=== PATIENT | female | born 1985 | race Caucasian/White ===

== ENCOUNTER 2017-12-22 09:24 | Emergency (ER) | payer MEDICAID ==
[2017-03-09 20:06] VITALS: Wt 50.8 kg
[~2017-12-22 09:24] MED LIST: ACE3 PO; ACET-1718 PO; ADV100/50 INH; ADV250/50 INH; ADV500/50 INH; ALB6.7R INH; ALBU8.5H IH; AMO500 PO; AMOX-362 PO; ANTIBIOTIC; AUG500 PO; AUG875 PO; AUGMENTIN; BACDS PO; BCP; BEN100 PO; CEP250 PO; CEP500 PO; CETI10CA8 PO; CIP500 PO; CODE473S6 PO; CYC10 PO; DIPH-740 PO; DOXY-179 PO; ETON68IM SQ; FAM20 PO; FAMO20TA28 PO; FERR325C2 PO; FLUT1DIS28 IH; FLUT9.9S ENA; HYDR-3083 PO; IBU800 PO; IBUP600T22 PO; IBUP800T37 PO; KET10 PO; LOR5 PO; LOR5/325 PO; LOR75 PO; LORA-1455 PO; MECL25TA9 PO; MET10 PO; METH4TAB66 PO; METR-1 PO; METR250 PO; MONT10TA PO; MONT10TA4 PO; MUCINEX; NIF10 PO; NIFE10CA38 PO; NIFE20CA8 PO; NIT100 PO; NITR-105 PO; NORG1TAB2 PO; NORG1TAB75 PO; ONDA4TAB PO; ONDA4TAB97 PO; OSEL75CA15 PO; OXYC5SOL14 PO; Oral birth control; PAN20 PO; PAN40 PO; PANT40TA65 PO; PER PO; PHEN-529 PO; PHEN200T32 PO; PHENA200 PO; PNV1CAPS53 PO; PRE20 PO; PRED-1 PO; PRED-314 PO; PRED1TAB17 PO; PRED20TA6 PO; PREN-127 PO; PREN-85 PO; PREN1COM5 PO; PRENATAL VIT PO; PRO25 PO; PROAIRPT IH; ROBC PO; SERT-1 PO; SERT25TA87 PO; SULF-120 PO; SULF-198 PO; TER25 PO; TRA50 PO; TRAM-420 PO; [UNRECOGNIZED DRUG - OTHER] PO
--- NOTE | 2017-12-22 09:29 | ER Report ---
History and Physical Time Seen By MD: 09:25 HPI/ROS CHIEF COMPLAINT: Mid epigastric abdominal pain with radiation to the mid thoracic back HISTORY OF PRESENT ILLNESS: 32-year-old female here with acute onset of midepigastric pain with radiation to the thoracic spine which started approximately 845 this morning. Patient reports a dull gnawing pain which is consistent with her prior episodes of pancreatitis. She she currently takes vitamin D and Zoloft and has not taken pantoprazole and approximately 6 months. Patient reports several episodes of emesis with associated nausea. Patient denies fevers, chills, chest pain, shortness of breath, blurred vision, sore throat, dysuria or rashes. REVIEW OF SYSTEMS: Constitutional: Uncomfortable, non toxic Eyes: No discharge. ENT: No sore throat. Cardiovascular: No chest pain, no palpitations. Respiratory: No cough, no shortness of breath. Gastrointestinal: + Mid abdominal pain in mid epigastrium, no vomiting. Genitourinary: No hematuria. Musculoskeletal: No back pain. Skin: No rashes. Neurological: No headache. Allergies: Coded Allergies: lorazepam (Verified Allergy, Severe, ANAPHYLAXIS, 12/22/17) Uncoded Allergies: NUTS (Allergy, Unknown, 12/22/17) Home Meds Active Scripts Ondansetron (ZOFRAN ODT) 4 Mg Tab.rapdis, 4 MG PO Q6H Y for NAUSEA/VOMITING for 7 Days, #20 TAB.KOSTAS 0 Refills Prov:PREETI PARK David NESS 12/22/17 Reported Medications Cholecalciferol (Vitamin D3) (VITAMIN D3) 1,000 Unit Tablet, 1000 UNIT PO QDAY, TAB 12/22/17 Sertraline Hcl (ZOLOFT) 100 Mg Tablet, 1 TAB PO QDAY, TAB 12/22/17 Discontinued Reported Medications Sertraline Hcl (ZOLOFT) 50 Mg Tablet, 1.5 TAB PO QDAY, TAB 04/20/17 Montelukast Sodium (SINGULAIR) 10 Mg Tablet, 1 TAB PO QDAY, TAB 02/28/17 Fluticasone Propionate (Flonase Allergy Relief) 9.9 Ml [place].susp, DELILAH DAILY 02/28/17 Cetirizine Hcl (ZYRTEC) 10 Mg Capsule, 10 MG PO QDAY, CAPSULE 6/30/17 Famotidine (PEPCID) 20 Mg Tablet, 20 MG PO QDAY, #10 TAB 02/25/17 Pantoprazole Sodium (PANTOPRAZOLE SODIUM) 40 Mg Tablet.dr, 40 MG PO QDAY, TAB.SR 02/25/17 Albuterol Sulfate 90 Mcg/Act (PROAIR HFA 90 MCG/ACT) 8.5 Gm Hfa.aer.ad, 1-2 PUFF IH 3-4XD, INHALER 08/16/16 Fluticasone/Salmeterol (ADVAIR 250-50 DISKUS) 1 Each Disk.w.dev, 1 EACH IH 08/16/16 Vits W-Ca,Fe,Fa(<1MG) ( VITAMINS) 1 Each Tablet, 1 EACH PO DAILY, TAB 08/16/16 Discontinued Scripts Sulfamethoxazole/Trimet 800-160 Mg Tab (BACTRIM DS TABLET) 1 Each Tablet, 1 TAB PO Q12H, #14 TAB Prov:LAITH MTZ INVESTMENT CONSULTANT 04/20/17 Past Medical/Surgical History She has a history significant for vertigo, migraines, asthma, pancreatitis, urinary tract infection, D&C, Reviewed Nurses Notes: Yes Old Medical Records Reviewed: Yes Hx Smoking: No Smoking Status: Former Smoker Exposure to Second Hand Smoke?: Yes Hx Substance Use Disorder: No Hx Alcohol Use: No Constitutional Vital Sign - Last 24 Hours 12/22/17 12/22/17 12/22/17 12/22/17 09:30 09:30 09:39 09:51 Temp 98.3 Pulse 63 Resp 16 B/P (MAP) 113/71 113/71 (85) 118/95 (103) Pulse Ox 93 98 O2 Delivery Room Air 12/22/17 12/22/17 12/22/17 12/22/17 09:59 10:00 10:14 10:19 Pulse 113 63 67 B/P (MAP) 121/75 (90) Pulse Ox 88 95 97 12/22/17 12/22/17 12/22/17 12/22/17 10:19 10:30 10:30 10:34 Pulse 67 64 B/P (MAP) 101/50 (67) 101/50 (67) Pulse Ox 97 94 12/22/17 12/22/17 12/22/17 12/22/17 10:34 10:49 10:49 10:54 Pulse 64 69 69 ??? Pulse Ox 94 100 100 12/22/17 12/22/17 12/22/17 12/22/17 10:58 11:00 11:24 11:30 Pulse 64 B/P (MAP) 113/53 (73) 120/76 (91) 120/69 (86) 12/22/17 12/22/17 12/22/17 12/22/17 11:54 12:00 12:24 12:30 Pulse 66 74 B/P (MAP) 108/68 (81) 113/72 (86) Pulse Ox 92 93 12/22/17 12/22/17 12/22/17 12/22/17 12:35 12:50 13:00 13:05 Pulse 64 66 80 B/P (MAP) 102/74 (83) Pulse Ox 92 89 94 Intake and Output 12/22/17 12/22/17 12/23/17 15:00 23:00 07:00 Intake Total 1000 ml Balance 1000 ml Physical Exam General Appearance: The patient is alert, has no immediate need for airway protection and no signs of toxicity. + moderate discomfort due to pain Eyes: Pupils equal and round no pallor or injection. ENT, Mouth: Mucous membranes are moist. Respiratory: There are no retractions, lungs are clear to auscultation. Cardiovascular: Regular rate and rhythm. Gastrointestinal: Abdomen is soft with mild TTP of the mid epigastrium no masses, bowel sounds normal. No rebound or guarding Neurological: No focal deficits Skin: Warm and dry, no rashes. Musculoskeletal: Neck is supple non tender. DIFFERENTIAL DIAGNOSIS: After history and physical exam differential diagnosis was considered for abdominal pain including but not limited to appendicitis, cholecystitis, gastritis and urinary tract infection, pancreatitis Medical Decision Making Data Points Result Diagram: 12/22/17 0935 12/22/17 0935 Laboratory Hematology Test 12/22/17 09:35 12/22/17 10:54 Red Blood Count 4.78 M/uL (4.17-5.56) Mean Corpuscular Volume 85.4 fL (80.0-96.0) Mean Corpuscular Hemoglobin 28.7 pg (26.0-33.0) Mean Corpuscular Hemoglobin Concent 33.5 g/dL (32.0-36.0) Red Cell Distribution Width 13.0 % (11.5-14.5) Mean Platelet Volume 8.8 fL (7.2-11.1) Neutrophils (%) (Auto) 51.2 % (39.4-72.5) Lymphocytes (%) (Auto) 35.9 % (17.6-49.6) Monocytes (%) (Auto) 7.7 % (4.1-12.4) Eosinophils (%) (Auto) 4.4 % (0.4-6.7) Basophils (%) (Auto) 0.8 % (0.3-1.4) Nucleated RBC Relative Count (auto) 0.0 /100WBC Neutrophils # (Auto) 3.8 K/uL (2.0-7.4) Lymphocytes # (Auto) 2.7 K/uL (1.3-3.6) Monocytes # (Auto) 0.6 K/uL (0.3-1.0) Eosinophils # (Auto) 0.3 K/uL (0.0-0.5) Basophils # (Auto) 0.1 K/uL (0.0-0.1) Nucleated RBC Absolute Count (auto) 0.00 K/uL Sodium Level 140 mmol/L (137-145) Potassium Level 2.7 mmol/L (3.5-5.0) Chloride Level 98 mmol/L (98-107) Carbon Dioxide Level 27 mmol/L (22-31) Blood Urea Nitrogen 8 mg/dl (7-18) Creatinine 0.80 mg/dl (0.52-1.04) Glomerular Filtration Rate Calc > 60.0 Random Glucose 107 mg/dl (75-110) Calcium Level 9.2 mg/dl (8.4-10.2) Total Bilirubin 0.4 mg/dl (0.2-1.3) Aspartate Amino Transf (AST/SGOT) 24 U/L (0-35) Alanine Aminotransferase (ALT/SGPT) 17 U/L (0-56) Alkaline Phosphatase 98 U/L (0-126) Total Protein 7.4 gm/dl (6.3-8.2) Albumin 4.2 g/dl (3.5-5.0) Lipase 106 U/L (23-300) Human Chorionic Gonadotropin, Qual Negative (NEGATIVE) Urine Color Yellow Urine Clarity Slightly-cloudy Urine pH 5.0 pH (4.8-9.5) Urine Specific [place] 1.015 Urine Protein Negative mg/dL (NEGATIVE) Urine Glucose (UA) Negative mg/dL (NEGATIVE) Urine Ketones Negative mg/dL (NEGATIVE) Urine Blood Negative (NEGATIVE) Urine Nitrite Negative (NEGATIVE) Urine Bilirubin Negative (NEGATIVE) Urine Urobilinogen Negative mg/dL (0.2-1.9) Urine Leukocyte Esterase Negative (NEGATIVE) Urine RBC 1 /HPF (0-2/HPF) Urine WBC 3 /HPF (0-5/HPF) Urine Squamous Epithelial Cells Many /LPF (</=FEW) Urine Transitional Epithelial Cells Few /LPF (NONE-FEW) Urine Bacteria Negative /HPF (NONE-FEW) Urine Mucus Few /HPF (NONE-FEW) Chemistry Test 12/22/17 09:35 12/22/17 10:54 White Blood Count 7.5 k/uL (4.5-11.0) Red Blood Count 4.78 M/uL (4.17-5.56) Hemoglobin 13.7 g/dL (12.0-16.0) Hematocrit 40.9 % (34.0-47.0) Mean Corpuscular Volume 85.4 fL (80.0-96.0) Mean Corpuscular Hemoglobin 28.7 pg (26.0-33.0) Mean Corpuscular Hemoglobin Concent 33.5 g/dL (32.0-36.0) Red Cell Distribution Width 13.0 % (11.5-14.5) Platelet Count 269 K/uL (150-450) Mean Platelet Volume 8.8 fL (7.2-11.1) Neutrophils (%) (Auto) 51.2 % (39.4-72.5) Lymphocytes (%) (Auto) 35.9 % (17.6-49.6) Monocytes (%) (Auto) 7.7 % (4.1-12.4) Eosinophils (%) (Auto) 4.4 % (0.4-6.7) Basophils (%) (Auto) 0.8 % (0.3-1.4) Nucleated RBC Relative Count (auto) 0.0 /100WBC Neutrophils # (Auto) 3.8 K/uL (2.0-7.4) Lymphocytes # (Auto) 2.7 K/uL (1.3-3.6) Monocytes # (Auto) 0.6 K/uL (0.3-1.0) Eosinophils # (Auto) 0.3 K/uL (0.0-0.5) Basophils # (Auto) 0.1 K/uL (0.0-0.1) Nucleated RBC Absolute Count (auto) 0.00 K/uL Glomerular Filtration Rate Calc > 60.0 Calcium Level 9.2 mg/dl (8.4-10.2) Total Bilirubin 0.4 mg/dl (0.2-1.3) Aspartate Amino Transf (AST/SGOT) 24 U/L (0-35) Alanine Aminotransferase (ALT/SGPT) 17 U/L (0-56) Alkaline Phosphatase 98 U/L (0-126) Total Protein 7.4 gm/dl (6.3-8.2) Albumin 4.2 g/dl (3.5-5.0) Lipase 106 U/L (23-300) Human Chorionic Gonadotropin, Qual Negative (NEGATIVE) Urine Color Yellow Urine Clarity Slightly-cloudy Urine pH 5.0 pH (4.8-9.5) Urine Specific [place] 1.015 Urine Protein Negative mg/dL (NEGATIVE) Urine Glucose (UA) Negative mg/dL (NEGATIVE) Urine Ketones Negative mg/dL (NEGATIVE) Urine Blood Negative (NEGATIVE) Urine Nitrite Negative (NEGATIVE) Urine Bilirubin Negative (NEGATIVE) Urine Urobilinogen Negative mg/dL (0.2-1.9) Urine Leukocyte Esterase Negative (NEGATIVE) Urine RBC 1 /HPF (0-2/HPF) Urine WBC 3 /HPF (0-5/HPF) Urine Squamous Epithelial Cells Many /LPF (</=FEW) Urine Transitional Epithelial Cells Few /LPF (NONE-FEW) Urine Bacteria Negative /HPF (NONE-FEW) Urine Mucus Few /HPF (NONE-FEW) Urinalysis Test 12/22/17 10:54 Urine Color Yellow Urine Clarity Slightly-cloudy Urine pH 5.0 pH (4.8-9.5) Urine Specific [place] 1.015 Urine Protein Negative mg/dL (NEGATIVE) Urine Glucose (UA) Negative mg/dL (NEGATIVE) Urine Ketones Negative mg/dL (NEGATIVE) Urine Blood Negative (NEGATIVE) Urine Nitrite Negative (NEGATIVE) Urine Bilirubin Negative (NEGATIVE) Urine Urobilinogen Negative mg/dL (0.2-1.9) Urine Leukocyte Esterase Negative (NEGATIVE) Urine RBC 1 /HPF (0-2/HPF) Urine WBC 3 /HPF (0-5/HPF) Urine Squamous Epithelial Cells Many /LPF (</=FEW) Urine Transitional Epithelial Cells Few /LPF (NONE-FEW) Urine Bacteria Negative /HPF (NONE-FEW) Urine Mucus Few /HPF (NONE-FEW) EKG/Imaging Imaging EXAMINATION: Chest radiographs 2 views HISTORY: Epigastric pain, chest pain. COMPARISON: 12/21/2014. FINDINGS: PA and lateral views of the chest are submitted. Lines/tubes: None. Lungs/pleura: No focal consolidation or pleural effusion. Heart: Negative. Mediastinum: Negative. Bony structures/body wall: Negative. Visualized upper abdomen: No free air. IMPRESSION: No radiographic evidence of acute cardiopulmonary disease. ED Course/Re-evaluation ED Course Patient is a 32-year-old female here with midepigastric pain radiating to the mid thoracic spine which started shortly prior to arrival. Patient was in moderate distress at time of arrival however improved significantly by the time of reevaluation at 12/22/2017 11:22:50 am after receiving Toradol, 1 L normal saline bolus, Zofran. Chest x-ray was ordered and was unremarkable showing no signs of free air under the diaphragm or effusions. Patient reportedly had a history of pancreatitis proximally 7 years prior and has been off of her pantoprazole for approximately 6 months. Patient was mildly reproducible on palpation of the midepigastrium. Patient was noted to have a potassium at 2.7 and was repleted with 40 mL equivalents of potassium. Patient pain improved and I discussed the findings with the patient. Patient was given a prescription for Zofran as needed for nausea. Patient was stable at time of discharge Re-evaluation Patient symptoms had improved by time of reevaluation. I discussed the findings of her lab reports and imaging and she voiced understanding. Patient was given a prescription for Zofran Decision to Disposition Date: Dec 22, 2017 Decision to Disposition Time: 13:15 Depart Departure Latest Vital Signs Vital Signs Date Time Temp Pulse Resp B/P (MAP) Pulse Ox O2 Delivery O2 Flow Rate FiO2 12/22/17 13:05 80 94 12/22/17 13:00 102/74 (83) 12/22/17 09:30 98.3 16 Room Air Impression: Primary Impression: Epigastric abdominal pain Additional Impression: Nausea & vomiting Condition: Improved Disposition: HOME OR SELF-CARE Referrals: SALLIE ORLANDO PA-C (PCP) New Scripts Ondansetron (ZOFRAN ODT) 4 Mg Tab.rapdis 4 MG PO Q6H Y for NAUSEA/VOMITING for 7 Days, #20 TAB.KOSTAS 0 Refills Prov: PREETI PARK DO 12/22/17 Patient Instructions: Acute Abdominal Pain (ED), Acute Nausea and Vomiting (ED) Additional Instructions: Please return promptly with any worsening of your symptoms. You are noted to have a low potassium level on were given potassium for repletion. These follow- up with her family doctor in the next week for further management. He may take 1 tab of Zofran for nausea as needed every 6 hours. Problem Qualifiers PREETI PARK DO Dec 22, 2017 09:28
[2017-12-22] MEDS ORDERED: CHOL10005 PO (09:31)
[2017-12-22] MEDS ORDERED: SERT-173 PO (09:31)
[2017-12-22] MEDS ORDERED: KETOROLAC 30 MG/ML VIAL IVP ONE (09:40)
[2017-12-22] MEDS ORDERED: NS(*) 0.9% 1000 ML BAG 1,000 ML IV ONE (09:40)
[2017-12-22] MEDS ORDERED: ONDANSETRON 4 MG ODT TABDP SL ONE (09:40)
--- NOTE | 2017-12-22 10:17 | RADIOLOGY IMAGING REPORT ---
FACILITY: [facility] [place] PATIENT NAME: Mathieu Joseph : 1985 MR: [id number] V: [id number] EXAM DATE: ORDERING PHYSICIAN: PREETI PARK TECHNOLOGIST: Location: [facility] Patient: Mathieu Joseph : 1985 Visit/Account:[id number] Date of Sevice: 12/22/2017 EXAMINATION: Chest radiographs 2 views HISTORY: Epigastric pain, chest pain. COMPARISON: 12/21/2014. FINDINGS: PA and lateral views of the chest are submitted. Lines/tubes: None. Lungs/pleura: No focal consolidation or pleural effusion. Heart: Negative. Mediastinum: Negative. Bony structures/body wall: Negative. Visualized upper abdomen: No free air. IMPRESSION: No radiographic evidence of acute cardiopulmonary disease. Report Dictated By: Inés Cooper MD at 12/22/2017 10:11 AM Report E-Signed By: Inés Cooper MD at 12/22/2017 10:11 AM WSN:[id number]
[2017-12-22] MEDS ORDERED: fentaNYL CITR 100 MCG/2 ML AMP IVP ONE (12:25)
[2017-12-22 12:29] LABS: PLATELET COUNT, AUTOMATED 269 K/uL (150-450)
[2017-12-22 13:00] VITALS: BP 102/74
[2017-12-22] MEDS ORDERED: POTASSIUM CHL 20 MEQ TABCR PO SCH (13:00)
[2017-12-22] MEDS ORDERED: ONDA4TAB PO (13:15)
== END 2017-12-22 13:21 | disposition home or self-care (01) ==
LOC: ER 09:24
DX: R10.13 Epigastric pain (principal); R11.2 Nausea with vomiting, unspecified; E87.6 Hypokalemia
CPT/HCPCS: 71046; 81001; 83690; 84703; 85025; 96361; 96374; 99284; J1885; J7030; S0119; 82040; 82247; 82310; 82374; 82435; 82565; 82947; 84075; 84132; 84155; 84295; 84450; 84460; 84520

== ENCOUNTER 2018-01-23 19:37 | Emergency (ER) | payer MEDICAID ==
[2017-03-09 20:06] VITALS: Wt 54.4 kg
[~2018-01-23 19:37] MED LIST changes: +CHOL10005 PO; +SERT-173 PO
[2018-01-23] MEDS ORDERED: MONT10TA PO (19:48)
[2018-01-23] MEDS ORDERED: FLUT1DIS27 IH (19:48)
[2018-01-23] MEDS ORDERED: PANT40TA65 PO (19:48)
--- NOTE | 2018-01-23 19:54 | ER Report ---
History and Physical Time Seen By MD: 19:49 Hx. of Stated Complaint: pT REPORTING ABDOMINAL PAIN SINCE THIS MORNING. NO NVD. NO CONSTIPATION. PT REPORTS REALLY BAD CRAMPS AND BURNING WHEN SHE URINATES. HPI/ROS CHIEF COMPLAINT: dysuria, abdominal and low back pain HISTORY OF PRESENT ILLNESS: This is a 32 year old female. She is having lower abdominal cramping, started minimal last night, worse today. Urinary frequency, urgency and burning. Mild nausea. No diarrhea. No fevers or chills. History of frequent UTIs. Due for menses at the first of the month, regular. Allergies: Coded Allergies: lorazepam (Verified Allergy, Severe, ANAPHYLAXIS, 12/22/17) Uncoded Allergies: NUTS (Allergy, Unknown, 12/22/17) Home Meds Active Scripts Hydrocodone Bit/Acetaminophen (HYDROCODON-ACETAMINOPHEN 5-325) 1 Each Tablet, 1 EACH PO Q4H Y for PAIN, #4 TAB 0 Refills Prov:JOSE ARTEAGA MD 01/23/18 Sulfamethoxazole/Trimet 800-160 Mg Tab (BACTRIM DS TABLET) 1 Each Tablet, 1 TAB PO Q12H, #14 TAB 0 Refills Prov:JOSE ARTEAGA MD 01/23/18 Reported Medications Fluticasone/Salmeterol (ADVAIR 100-50 DISKUS) 1 Each Disk.w.dev, 1 EACH IH 01/23/18 Pantoprazole Sodium (PANTOPRAZOLE SODIUM) 40 Mg Tablet.dr, 40 MG PO QDAY, TAB.SR 01/23/18 Montelukast Sodium (SINGULAIR) 10 Mg Tablet, 1 TAB PO QDAY, TAB 01/23/18 Cholecalciferol (Vitamin D3) (VITAMIN D3) 1,000 Unit Tablet, 1000 UNIT PO QDAY, TAB 12/22/17 Sertraline Hcl (ZOLOFT) 100 Mg Tablet, 1 TAB PO QDAY, TAB 12/22/17 Discontinued Scripts Ondansetron (ZOFRAN ODT) 4 Mg Tab.rapdis, 4 MG PO Q6H Y for NAUSEA/VOMITING for 7 Days, #20 TAB.KOSTAS 0 Refills Prov:PREETI PARK DO 12/22/17 Reviewed Nurses Notes: Yes Hx Smoking: No Smoking Status: Former Smoker Exposure to Second Hand Smoke?: Yes Hx Substance Use Disorder: No Hx Alcohol Use: No Constitutional Vital Sign - Last 24 Hours 01/23/18 01/23/18 01/23/18 01/23/18 19:42 19:43 19:52 20:00 Temp 98.6 Pulse 76 76 Resp 16 B/P (MAP) 118/84 118/84 (95) 115/85 (95) Pulse Ox 97 94 O2 Delivery Room Air 01/23/18 01/23/18 01/23/18 20:07 20:22 20:30 Pulse 72 71 B/P (MAP) 121/92 (102) Pulse Ox 95 94 Physical Exam General Appearance: The patient is alert, has no immediate need for airway protection and no current signs of toxicity. Respiratory: Chest is non tender, lungs are clear to auscultation. Cardiac: regular rate and rhythm Gastrointestinal: Abdomen is soft with tenderness suprapubic area. With bowel sounds normal. Musculoskeletal: No discomfort with palpation of lower back. Skin: No rashes or lesions. DIFFERENTIAL DIAGNOSIS: After history and physical exam differential diagnosis was considered for dysuria, frequency, urgency with suprapubic and low back pain , likely UTI. Medical Decision Making Data Points Laboratory Hematology Test 01/23/18 19:49 Urine Color Yellow Urine Clarity Slightly-cloudy Urine pH 5.0 pH (4.8-9.5) Urine Specific [place] 1.027 Urine Protein 30 mg/dL (NEGATIVE) Urine Glucose (UA) Negative mg/dL (NEGATIVE) Urine Ketones Negative mg/dL (NEGATIVE) Urine Blood Negative (NEGATIVE) Urine Nitrite Negative (NEGATIVE) Urine Bilirubin Negative (NEGATIVE) Urine Urobilinogen Negative mg/dL (0.2-1.9) Urine Leukocyte Esterase Trace (NEGATIVE) Urine RBC 1 /HPF (0-2/HPF) Urine WBC 2 /HPF (0-5/HPF) Urine Squamous Epithelial Cells Many /LPF (</=FEW) Urine Bacteria Negative /HPF (NONE-FEW) Urine Mucus Few /HPF (NONE-FEW) Urine HCG, Qualitative Negative (NEGATIVE) Chemistry Test 01/23/18 19:49 Urine Color Yellow Urine Clarity Slightly-cloudy Urine pH 5.0 pH (4.8-9.5) Urine Specific [place] 1.027 Urine Protein 30 mg/dL (NEGATIVE) Urine Glucose (UA) Negative mg/dL (NEGATIVE) Urine Ketones Negative mg/dL (NEGATIVE) Urine Blood Negative (NEGATIVE) Urine Nitrite Negative (NEGATIVE) Urine Bilirubin Negative (NEGATIVE) Urine Urobilinogen Negative mg/dL (0.2-1.9) Urine Leukocyte Esterase Trace (NEGATIVE) Urine RBC 1 /HPF (0-2/HPF) Urine WBC 2 /HPF (0-5/HPF) Urine Squamous Epithelial Cells Many /LPF (</=FEW) Urine Bacteria Negative /HPF (NONE-FEW) Urine Mucus Few /HPF (NONE-FEW) Urine HCG, Qualitative Negative (NEGATIVE) Urinalysis Test 01/23/18 19:49 Urine Color Yellow Urine Clarity Slightly-cloudy Urine pH 5.0 pH (4.8-9.5) Urine Specific [place] 1.027 Urine Protein 30 mg/dL (NEGATIVE) Urine Glucose (UA) Negative mg/dL (NEGATIVE) Urine Ketones Negative mg/dL (NEGATIVE) Urine Blood Negative (NEGATIVE) Urine Nitrite Negative (NEGATIVE) Urine Bilirubin Negative (NEGATIVE) Urine Urobilinogen Negative mg/dL (0.2-1.9) Urine Leukocyte Esterase Trace (NEGATIVE) Urine RBC 1 /HPF (0-2/HPF) Urine WBC 2 /HPF (0-5/HPF) Urine Squamous Epithelial Cells Many /LPF (</=FEW) Urine Bacteria Negative /HPF (NONE-FEW) Urine Mucus Few /HPF (NONE-FEW) Urine HCG, Qualitative Negative (NEGATIVE) ED Course/Re-evaluation ED Course Pain improved with a dose of Lortab 5/325. Urinalysis with changes likely representing urinary tract infection, but could be contamination as well. Urine culture ordered. Started on Bactrim DS. Decision to Disposition Date: January 23, 2018 Decision to Disposition Time: 20:25 Depart Departure Latest Vital Signs Vital Signs Date Time Temp Pulse Resp B/P (MAP) Pulse Ox O2 Delivery O2 Flow Rate FiO2 01/23/18 20:30 121/92 (102) 01/23/18 20:22 71 94 01/23/18 19:42 98.6 16 Room Air Impression: Primary Impression: Urinary tract infection Condition: Improved Disposition: HOME OR SELF-CARE Referrals: SALLIE ORLANDO PA-C (PCP) New Scripts Hydrocodone Bit/Acetaminophen (HYDROCODON-ACETAMINOPHEN 5-325) 1 Each Tablet 1 EACH PO Q4H Y for PAIN, #4 TAB 0 Refills Prov: JOSE ARTEAGA MD 01/23/18 Sulfamethoxazole/Trimet 800-160 Mg Tab (BACTRIM DS TABLET) 1 Each Tablet 1 TAB PO Q12H, #14 TAB 0 Refills Prov: JOSE ARTEAGA MD 01/23/18 Patient Instructions: Urinary Tract Infection in Women (ED) Additional Instructions: Keep taking Ibuprofen 800mg every 8 hours as needed for pain. Take Bactrim DS twice a day for 7 days. Lortab 5/325, one every 4 hours as needed for pain Increase fluid intake. Problem Qualifiers Primary Impression: Urinary tract infection Urinary tract infection type: acute cystitis Hematuria presence: without hematuria Qualified Codes: N30.00 - Acute cystitis without hematuria JOSE ARTEAGA MD January 23, 2018 19:54
[2018-01-23] MEDS ORDERED: APAP/HYDROCODONE 325/5 TAB PO ONE (19:55)
[2018-01-23] MEDS ORDERED: SULF-198 PO (20:27)
[2018-01-23] MEDS ORDERED: LOR5/325 PO (20:27)
[2018-01-23 20:30] VITALS: BP 121/92
== END 2018-01-23 20:38 | disposition home or self-care (01) ==
LOC: ER 19:47
DX: N30.00 Acute cystitis without hematuria (principal)
CPT/HCPCS: 81001; 81025; 87088; 99283

== ENCOUNTER 2018-01-25 11:30 | Emergency (ER) | payer MEDICAID ==
[2017-03-09 20:06] VITALS: Wt 54.4 kg
[~2018-01-25 11:30] MED LIST changes: +FLUT1DIS27 IH
--- NOTE | 2018-01-25 11:43 | ER Report ---
History and Physical Time Seen By MD: 11:35 HPI/ROS CHIEF COMPLAINT: Vomiting HISTORY OF PRESENT ILLNESS: Patient is a 32-year-old female who was recently seen on January 23 and diagnosed with urinary tract infection started on Bactrim. She now returns to the emergency department secondary to nausea and vomiting. Patient states she's been taking her Bactrim as directed but was unable take the dose this morning secondary to severe nausea. She states that she is still having urinary tract infection type symptoms. Review of the electronic medical record shows that the cultures grew greater than 100,000 colony forming units but it is mixed gladis. REVIEW OF SYSTEMS: Respiratory: No cough, no dyspnea. Cardiovascular: No chest pain, no palpitations. Gastrointestinal: Nausea no vomiting suprapubic abdominal pain Musculoskeletal: No back pain. Allergies: Coded Allergies: lorazepam (Verified Allergy, Severe, ANAPHYLAXIS, 01/25/18) Uncoded Allergies: NUTS (Allergy, Unknown, 12/22/17) Home Meds Active Scripts Ondansetron Hcl (ZOFRAN) 4 Mg Tablet, 4 MG PO Q8H for Nausea, #15 TAB 0 Refills Prov:SIVAN SANDERS MD 01/25/18 Hydrocodone Bit/Acetaminophen (HYDROCODON-ACETAMINOPHEN 5-325) 1 Each Tablet, 1 EACH PO Q4H Y for PAIN, #4 TAB 0 Refills Prov:JOSE ARTEAGA MD 01/23/18 Sulfamethoxazole/Trimet 800-160 Mg Tab (BACTRIM DS TABLET) 1 Each Tablet, 1 TAB PO Q12H, #14 TAB 0 Refills Prov:JOSE ARTEAGA MD 01/23/18 Reported Medications Fluticasone/Salmeterol (ADVAIR 100-50 DISKUS) 1 Each Disk.w.dev, 1 EACH IH 01/23/18 Pantoprazole Sodium (PANTOPRAZOLE SODIUM) 40 Mg Tablet.dr, 40 MG PO QDAY, TAB.SR 01/23/18 Montelukast Sodium (SINGULAIR) 10 Mg Tablet, 1 TAB PO QDAY, TAB 01/23/18 Cholecalciferol (Vitamin D3) (VITAMIN D3) 1,000 Unit Tablet, 1000 UNIT PO QDAY, TAB 12/22/17 Sertraline Hcl (ZOLOFT) 100 Mg Tablet, 1 TAB PO QDAY, TAB 12/22/17 Discontinued Scripts Ondansetron (ZOFRAN ODT) 4 Mg Tab.rapdis, 4 MG PO Q6H Y for NAUSEA/VOMITING for 7 Days, #20 TAB.KOSTAS 0 Refills Prov:PREETI PARK DO 12/22/17 Past Medical/Surgical History Recent diagnosis of urinary tract infection Hx Smoking: No Smoking Status: Former Smoker Exposure to Second Hand Smoke?: Yes Hx Substance Use Disorder: No Hx Alcohol Use: No Constitutional Vital Sign - Last 24 Hours 01/25/18 01/25/18 11:34 12:17 Temp 98.5 Pulse 70 66 Resp 16 16 B/P (MAP) 125/87 123/88 (100) Pulse Ox 95 96 O2 Delivery Room Air Room Air Physical Exam General Appearance: The patient is alert, has no immediate need for airway protection and no current signs of toxicity. Respiratory: Chest is non tender, lungs are clear to auscultation. Cardiac: regular rate and rhythm Gastrointestinal: Abdomen is soft and non tender, no masses, bowel sounds normal. Musculoskeletal: Neck: Neck is supple and non tender. Extremities have full range of motion and are non tender. Medical Decision Making Data Points Laboratory Hematology Test 01/25/18 11:35 Urine Color Yellow Urine Clarity Slightly-cloudy Urine pH 6.0 pH (4.8-9.5) Urine Specific [place] 1.020 Urine Protein Negative mg/dL (NEGATIVE) Urine Glucose (UA) Negative mg/dL (NEGATIVE) Urine Ketones Negative mg/dL (NEGATIVE) Urine Blood Negative (NEGATIVE) Urine Nitrite Negative (NEGATIVE) Urine Bilirubin Negative (NEGATIVE) Urine Urobilinogen 2.0 mg/dL (0.2-1.9) Urine Leukocyte Esterase Small (NEGATIVE) Urine RBC 1 /HPF (0-2/HPF) Urine WBC 1 /HPF (0-5/HPF) Urine Squamous Epithelial Cells Many /LPF (</=FEW) Urine Bacteria Negative /HPF (NONE-FEW) Urine Mucus Few /HPF (NONE-FEW) Chemistry Test 01/25/18 11:35 Urine Color Yellow Urine Clarity Slightly-cloudy Urine pH 6.0 pH (4.8-9.5) Urine Specific [place] 1.020 Urine Protein Negative mg/dL (NEGATIVE) Urine Glucose (UA) Negative mg/dL (NEGATIVE) Urine Ketones Negative mg/dL (NEGATIVE) Urine Blood Negative (NEGATIVE) Urine Nitrite Negative (NEGATIVE) Urine Bilirubin Negative (NEGATIVE) Urine Urobilinogen 2.0 mg/dL (0.2-1.9) Urine Leukocyte Esterase Small (NEGATIVE) Urine RBC 1 /HPF (0-2/HPF) Urine WBC 1 /HPF (0-5/HPF) Urine Squamous Epithelial Cells Many /LPF (</=FEW) Urine Bacteria Negative /HPF (NONE-FEW) Urine Mucus Few /HPF (NONE-FEW) Urinalysis Test 01/25/18 11:35 Urine Color Yellow Urine Clarity Slightly-cloudy Urine pH 6.0 pH (4.8-9.5) Urine Specific [place] 1.020 Urine Protein Negative mg/dL (NEGATIVE) Urine Glucose (UA) Negative mg/dL (NEGATIVE) Urine Ketones Negative mg/dL (NEGATIVE) Urine Blood Negative (NEGATIVE) Urine Nitrite Negative (NEGATIVE) Urine Bilirubin Negative (NEGATIVE) Urine Urobilinogen 2.0 mg/dL (0.2-1.9) Urine Leukocyte Esterase Small (NEGATIVE) Urine RBC 1 /HPF (0-2/HPF) Urine WBC 1 /HPF (0-5/HPF) Urine Squamous Epithelial Cells Many /LPF (</=FEW) Urine Bacteria Negative /HPF (NONE-FEW) Urine Mucus Few /HPF (NONE-FEW) ED Course/Re-evaluation ED Course Plan at this time will be oral Zofran we will also give an IM shot of Rocephin in case we're dealing with a resistant organism. Will collect another urinalysis and sent for culture Decision to Disposition Date: January 25, 2018 Decision to Disposition Time: 14:09 Depart Departure Latest Vital Signs Vital Signs Date Time Temp Pulse Resp B/P (MAP) Pulse Ox O2 Delivery O2 Flow Rate FiO2 01/25/18 12:17 66 16 123/88 (100) 96 Room Air 01/25/18 11:34 98.5 Impression: Primary Impression: Nausea Condition: Improved Disposition: HOME OR SELF-CARE New Scripts Ondansetron Hcl (ZOFRAN) 4 Mg Tablet 4 MG PO Q8H for Nausea, #15 TAB 0 Refills Prov: SIVAN SANDERS MD 01/25/18 Patient Instructions: Acute Nausea and Vomiting (ED) Additional Instructions: Take your prescribed medications as directed SIVAN SANDERS MD January 25, 2018 11:43
[2018-01-25] MEDS ORDERED: ONDANSETRON 4 MG ODT TABDP SL ONE (11:45)
[2018-01-25] MEDS ORDERED: cefTRIAXone 1 GM VIAL IM ONE (11:50)
[2018-01-25] MEDS ORDERED: LIDOCAINE 1% MDV 200 MG/20 ML INJ ONE (11:50)
[2018-01-25] MEDS ORDERED: ONDA4TAB97 PO (12:12)
[2018-01-25 12:17] VITALS: BP 123/88
== END 2018-01-25 12:18 | disposition home or self-care (01) ==
LOC: ER 11:45
DX: R11.2 Nausea with vomiting, unspecified (principal); N30.00 Acute cystitis without hematuria
CPT/HCPCS: 81001; 87088; 96372; 99283; J0696; J2001; S0119

== ENCOUNTER 2018-06-21 19:09 | Emergency (ER) | payer MEDICAID ==
[2017-03-09 20:06] VITALS: Wt 52.2 kg
--- NOTE | 2018-06-21 19:15 | ER Report ---
History and Physical Time Seen By MD: 19:15 HPI/ROS CHIEF COMPLAINT: Right flank pain HISTORY OF PRESENT ILLNESS: 32-year-old female presents after 2 days ago having a severe choking and vomiting episode of drinking a soda. She notes that she thinks she may be injured her back muscles on the right lower side. She now notes that it hurts to breathe deep and cough. She notes increased pain with movement. She denies dysuria or hematuria. She denies productive cough or fever. She notes 6/10 pain aggravated by movement, palpation and deep inspiration. REVIEW OF SYSTEMS: Respiratory: No cough, no dyspnea. Cardiovascular: No chest pain, no palpitations. Gastrointestinal: No vomiting, no abdominal pain. Musculoskeletal: As above Allergies: Coded Allergies: lorazepam (Verified Allergy, Severe, ANAPHYLAXIS, 06/21/18) Uncoded Allergies: NUTS (Allergy, Unknown, 12/22/17) Home Meds Active Scripts Methocarbamol (ROBAXIN-750) 750 Mg Tablet, 1 TAB PO TID PRN for MUSCLE SPASM RELIEF, #20 Prov:KISHAN HARVEY DO 06/21/18 Reported Medications Albuterol Sulfate 90 Mcg/Act (PROAIR HFA 90 MCG/ACT) 8.5 Gm Hfa.aer.ad, 2 PUFF IH Q4-6H PRN for SHORTNESS OF BREATH, INHALER 06/21/18 Fluticasone/Salmeterol (ADVAIR 100-50 DISKUS) 1 Each Disk.w.dev, 1 EACH IH 01/23/18 Pantoprazole Sodium (PANTOPRAZOLE SODIUM) 40 Mg Tablet.dr, 40 MG PO QDAY, TAB.SR 01/23/18 Montelukast Sodium (SINGULAIR) 10 Mg Tablet, 1 TAB PO QDAY, TAB 01/23/18 Sertraline Hcl (ZOLOFT) 100 Mg Tablet, 1 TAB PO QDAY, TAB 12/22/17 Discontinued Reported Medications Cholecalciferol (Vitamin D3) (VITAMIN D3) 1,000 Unit Tablet, 1000 UNIT PO QDAY, TAB 12/22/17 Discontinued Scripts Ondansetron Hcl (ZOFRAN) 4 Mg Tablet, 4 MG PO Q8H for Nausea, #15 TAB 0 Refills Prov:SIVAN SANDERS MD 01/25/18 Hydrocodone Bit/Acetaminophen (HYDROCODON-ACETAMINOPHEN 5-325) 1 Each Tablet, 1 EACH PO Q4H PRN for PAIN, #4 TAB 0 Refills Prov:JOSE ARTEAGA MD 01/23/18 Sulfamethoxazole/Trimet 800-160 Mg Tab (BACTRIM DS TABLET) 1 Each Tablet, 1 TAB PO Q12H, #14 TAB 0 Refills Prov:JOSE ARTEAGA MD 01/23/18 Past Medical/Surgical History Patient has a past medical history of vertigo, migraines, asthma, pancreatitis, frequent UTIs, anxiety. Patient has a surgical history of tubal ligation, D&C. Patient has a family medical history of cancer, diabetes. Reviewed Nurses Notes: Yes Old Medical Records Reviewed: Yes Hx Smoking: No Smoking Status: Former Smoker Exposure to Second Hand Smoke?: Yes Hx Substance Use Disorder: No Hx Alcohol Use: No Constitutional Vital Sign - Last 24 Hours 06/21/18 06/21/18 06/21/18 06/21/18 19:12 19:13 19:20 19:30 Temp 100.1 Pulse 95 Resp 17 B/P (MAP) 116/85 116/85 (95) 108/71 (83) 117/65 (82) Pulse Ox 92 O2 Delivery Room Air 06/21/18 20:00 B/P (MAP) 100/76 (84) Physical Exam Vital signs stable, low-grade fever 100.1, pulse ox normal General Appearance: The patient is alert, has no immediate need for airway protection and no current signs of toxicity. Eyes: Pupils equal and round no injection. Respiratory: Chest is non tender, lungs are clear to auscultation., Chest wall tenderness on palpation of the right lower thoracic paraspinous musculature, no CVA tenderness Cardiac: regular rate and rhythm Gastrointestinal: Abdomen is soft and non tender, no masses, bowel sounds normal. Musculoskeletal: Neck: Neck is supple and non tender. Extremities have full range of motion and are non tender. Skin: No rashes or lesions. DIFFERENTIAL DIAGNOSIS: After history and physical exam differential diagnosis was considered for flank pain including but not limited to musculoskeletal causes, kidney stone, pyelonephritis, shingles, and intra-abdominal causes such as diverticulitis and appendicitis. Medical Decision Making Data Points Laboratory Hematology Test 06/21/18 19:35 Urine Color Yellow Urine Clarity Slightly-cloudy Urine pH 5.0 pH (4.8-9.5) Urine Specific [place] 1.027 Urine Protein 30 mg/dL (NEGATIVE) Urine Glucose (UA) Negative mg/dL (NEGATIVE) Urine Ketones Trace mg/dL (NEGATIVE) Urine Blood Large (NEGATIVE) Urine Nitrite Negative (NEGATIVE) Urine Bilirubin Negative (NEGATIVE) Urine Urobilinogen 2.0 mg/dL (0.2-1.9) Urine Leukocyte Esterase Negative (NEGATIVE) Urine RBC 6 /HPF (0-2/HPF) Urine WBC 1 /HPF (0-5/HPF) Urine Squamous Epithelial Cells Many /LPF (</=FEW) Urine Bacteria Negative /HPF (NONE-FEW) Urine Hyaline Casts Few /LPF (NONE-FEW) Urine Mucus Few /HPF (NONE-FEW) Chemistry Test 06/21/18 19:35 Urine Color Yellow Urine Clarity Slightly-cloudy Urine pH 5.0 pH (4.8-9.5) Urine Specific [place] 1.027 Urine Protein 30 mg/dL (NEGATIVE) Urine Glucose (UA) Negative mg/dL (NEGATIVE) Urine Ketones Trace mg/dL (NEGATIVE) Urine Blood Large (NEGATIVE) Urine Nitrite Negative (NEGATIVE) Urine Bilirubin Negative (NEGATIVE) Urine Urobilinogen 2.0 mg/dL (0.2-1.9) Urine Leukocyte Esterase Negative (NEGATIVE) Urine RBC 6 /HPF (0-2/HPF) Urine WBC 1 /HPF (0-5/HPF) Urine Squamous Epithelial Cells Many /LPF (</=FEW) Urine Bacteria Negative /HPF (NONE-FEW) Urine Hyaline Casts Few /LPF (NONE-FEW) Urine Mucus Few /HPF (NONE-FEW) Urinalysis Test 06/21/18 19:35 Urine Color Yellow Urine Clarity Slightly-cloudy Urine pH 5.0 pH (4.8-9.5) Urine Specific [place] 1.027 Urine Protein 30 mg/dL (NEGATIVE) Urine Glucose (UA) Negative mg/dL (NEGATIVE) Urine Ketones Trace mg/dL (NEGATIVE) Urine Blood Large (NEGATIVE) Urine Nitrite Negative (NEGATIVE) Urine Bilirubin Negative (NEGATIVE) Urine Urobilinogen 2.0 mg/dL (0.2-1.9) Urine Leukocyte Esterase Negative (NEGATIVE) Urine RBC 6 /HPF (0-2/HPF) Urine WBC 1 /HPF (0-5/HPF) Urine Squamous Epithelial Cells Many /LPF (</=FEW) Urine Bacteria Negative /HPF (NONE-FEW) Urine Hyaline Casts Few /LPF (NONE-FEW) Urine Mucus Few /HPF (NONE-FEW) EKG/Imaging Imaging X-ray: Two-view chest x-ray was obtained. I viewed the images myself on the PACS system. My interpretation of the images is: No infiltrate, no effusion, normal mediastinum. The radiologist interpretation had no clinically significant variation from this interpretation. ED Course/Re-evaluation ED Course Patient was admitted to an examination room. H&P was done. The differential diagnoses was considered. Patient with a history of a mechanical injury and pain in her right flank. Her chest x-ray and urinalysis were unremarkable. She did have a low-grade fever. No obvious source was noted Patient be treated as a musculoskeletal thoracic strain. She is reluctant to take opiate pain relievers. She is allergic to tramadol, which gives her vomiting. She is advised to continue ibuprofen and heating pad. She'll be placed on Robaxin muscle relaxant. 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 She was noted to have some left rotated lower thoracic vertebrae which were corrected. She is advised to follow-up with her primary care if unimproved in 3-5 days for evaluation and referral for PT if unimproved Decision to Disposition Date: Jun 21, 2018 Decision to Disposition Time: 20:05 Depart Departure Latest Vital Signs Vital Signs Date Time Temp Pulse Resp B/P (MAP) Pulse Ox O2 Delivery O2 Flow Rate FiO2 06/21/18 20:00 100/76 (84) 06/21/18 19:12 100.1 95 17 92 Room Air Impression: Primary Impression: Strain of thoracic spine Condition: Improved Disposition: HOME OR SELF-CARE New Scripts Methocarbamol (ROBAXIN-750) 750 Mg Tablet 1 TAB PO TID PRN for MUSCLE SPASM RELIEF, #20 Prov: KISHAN HARVEY DO 06/21/18 Patient Instructions: Thoracic Back Strain (ED) Additional Instructions: Take ibuprofen 200 mg 3-4 tablets 3 times a day with food Apply heating pad to your back area to help the muscles relax Use the muscle relaxer as needed Lower with your primary care if unimproved in 3-5 days. Problem Qualifiers Primary Impression: Strain of thoracic spine Encounter type: initial encounter Qualified Codes: S29.019A - Strain of muscle and tendon of unspecified wall of thorax, initial encounter KISHAN HARVEY DO Jun 21, 2018 19:15
[2018-06-21] MEDS ORDERED: ALBU8.5H IH (19:20)
[2018-06-21 20:00] VITALS: BP 100/76
[2018-06-21] MEDS ORDERED: METH-543 PO (20:07)
[2018-06-21] MEDS ORDERED: METHOCARBAMOL 500 MG TAB PO ONE (20:10)
--- NOTE | 2018-06-21 20:11 | RADIOLOGY IMAGING REPORT ---
FACILITY: [facility] - [place] PATIENT NAME: Mathieu Joseph : 1985 MR: [id number] V: [id number] EXAM DATE: ORDERING PHYSICIAN: KISHAN HARVEY TECHNOLOGIST: Location: [facility] - [place], [place] Patient: Mathieu Joseph : 1985 Visit/Account:[id number] Date of Sevice: 06/21/2018 EXAMINATION: Chest 2 Views HISTORY: Right rib pain and flank pain after choking. COMPARISON: 12/22/2017. FINDINGS: The lungs are clear. No focal consolidation or pleural fluid. No pneumothorax. Normal cardiomediastinal silhouette, with normal heart size and pulmonary vascularity. Visualized osseous structures are unremarkable. IMPRESSION: Negative chest. Report Dictated By: George Gordillo MD at 06/21/2018 8:06 PM Report E-Signed By: George Gordillo MD at 06/21/2018 8:08 PM WSN:[id number]
== END 2018-06-21 20:17 | disposition home or self-care (01) ==
LOC: ER 19:17
DX: S29.019A Strain of muscle and tendon of unspecified wall of thorax, initial encounter (principal)
CPT/HCPCS: 71046; 81001; 99283

== ENCOUNTER 2018-08-13 19:03 | Emergency (ER) | payer MEDICAID ==
[2017-03-09 20:06] VITALS: Wt 52.2 kg
[~2018-08-13 19:03] MED LIST changes: +METH-543 PO
[2018-08-13 19:07] VITALS: BP 137/92
--- NOTE | 2018-08-13 19:14 | ER Report ---
History and Physical Time Seen By MD: 19:14 Hx. of Stated Complaint: slipped on the ice. thinks she hit her rt eye on the brick wall but isn't sure because she thought she caught herself. rt eye lac with swelling/bruising HPI/ROS CHIEF COMPLAINT: Laceration HISTORY OF PRESENT ILLNESS: 32-year-old female patient presents to emergency room with complaint of laceration to the right eyebrow. Patient states that she was leaving work this evening, approximately 30 minutes prior to arrival in the emergency room when she slipped on the ice. Patient states that she struck her head against the brick wall. She states that initially she didn't think too much about it, until showed she was having blood running out of phase. Patient states that her last tetanus shot was approximately one year ago. She denies any nausea , vomiting, dizziness area patient does have a slight headache. Patient has not taken any medication for this. Allergies: Coded Allergies: lorazepam (Verified Allergy, Severe, ANAPHYLAXIS, 08/13/18) Uncoded Allergies: NUTS (Allergy, Unknown, 12/22/17) Home Meds Reported Medications Albuterol Sulfate 90 Mcg/Act (PROAIR HFA 90 MCG/ACT) 8.5 Gm Hfa.aer.ad, 2 PUFF IH Q4-6H PRN for SHORTNESS OF BREATH, INHALER 06/21/18 Fluticasone/Salmeterol (ADVAIR 100-50 DISKUS) 1 Each Disk.w.dev, 1 EACH IH 01/23/18 Pantoprazole Sodium (PANTOPRAZOLE SODIUM) 40 Mg Tablet.dr, 40 MG PO QDAY, TAB.SR 01/23/18 Montelukast Sodium (SINGULAIR) 10 Mg Tablet, 1 TAB PO QDAY, TAB 01/23/18 Sertraline Hcl (ZOLOFT) 100 Mg Tablet, 1 TAB PO QDAY, TAB 12/22/17 Discontinued Scripts Methocarbamol (ROBAXIN-750) 750 Mg Tablet, 1 TAB PO TID PRN for MUSCLE SPASM RELIEF, #20 Prov:KISHAN HARVEY DO 06/21/18 Past Medical/Surgical History Patient has a past medical history of vertigo, migraines, asthma, frequent UTI, anxiety. Patient has a surgical history of tubal ligation, D&C. Patient has a family medical history of cancer, diabetes. Reviewed Nurses Notes: Yes Hx Smoking: No Smoking Status: Former Smoker Exposure to Second Hand Smoke?: Yes Hx Substance Use Disorder: No Hx Alcohol Use: No Constitutional Vital Sign - Last 24 Hours 08/13/18 19:07 Temp 97.9 Pulse 124 Resp 18 B/P (MAP) 137/92 Pulse Ox 90 O2 Delivery Room Air Physical Exam General appearance: Alert no distress. Respiratory: Chest is non tender, lungs are clear to auscultation. Cardiac: Regular rate and rhythm. Skin: Patient has a 2 some a laceration to the right eyebrow, it does go into the subcutaneous tissue. There is no obvious bleeding at this time. There are no deep structures injured. Neuro: Patient is alert and oriented 4. DIFFERENTIAL DIAGNOSIS: After history and physical exam differential diagnosis was considered for laceration, concussion, headache. Medical Decision Making ED Course/Re-evaluation ED Course Patient admitted exam room, history and physical were obtained. Differential diagnoses were considered. On examination lungs are clear, heart is regular, abdomen soft nontender. Patient does have a 1.5 cm laceration to the right eyebrow. Does go into the subcutaneous tissue. Patient does have some tenderness to the tissue around it. Patient is alert and oriented 4. The area was anesthetized, cleaned and repaired described below. Patient tolerated procedure well. We will go ahead and discharge her home this time. She is to follow-up with her primary care provider in the next 5-7 days to have sutures removed. Patient verbalized understanding and agreement with plan. Procedure: Laceration repair. Verbal consent was obtained from the patient. The 1.5 cm laceration on the right eyebrow was anesthetized in the usual fashion. The wound was scrubbed, draped and explored to its base with a gloved finger. There were no deep structures involved. The wound was repaired with 3 simple interrupted sutures using 6-0 Prolene material. The wound repair was simple. The procedure was performed by myself. Decision to Disposition Date: Aug 13, 2018 Decision to Disposition Time: 20:01 Depart Departure Latest Vital Signs Vital Signs Date Time Temp Pulse Resp B/P (MAP) Pulse Ox O2 Delivery O2 Flow Rate FiO2 08/13/18 19:07 97.9 124 18 137/92 90 Room Air Impression: Primary Impression: Laceration of right eyebrow Condition: Improved Disposition: HOME OR SELF-CARE Referrals: SALLIE ORLANDO PA-C (PCP) Patient Instructions: Facial Laceration (ED) Additional Instructions: Keep wound dry for 48 hours. Follow up with your primary care provider in the next 5-7 days to have sutures removed. Monitor for signs of infection; redness, swelling, heat, discharge, increasing pain or red streaking. Take Tylenol or Ibuprofen as needed for pain. Return to the ER with any concerns. Problem Qualifiers Primary Impression: Laceration of right eyebrow Encounter type: initial encounter Qualified Codes: S01.111A - Laceration without foreign body of right eyelid and periocular area, initial encounter LAITH MTZ Aug 13, 2018 19:14
== END 2018-08-13 20:04 | disposition home or self-care (01) ==
LOC: ER 19:15
DX: S01.111A Laceration without foreign body of right eyelid and periocular area, initial encounter (principal); W00.0XXA Fall on same level due to ice and snow, initial encounter
CPT/HCPCS: 99283

== ENCOUNTER 2019-03-14 17:05 | Emergency (ER) | payer MEDICAID ==
[2017-03-09 20:06] VITALS: Wt 52.2 kg
[2019-03-14 17:08] VITALS: BP 107/74
--- NOTE | 2019-03-14 17:12 | ER Report ---
History and Physical Time Seen By MD: 17:08 Hx. of Stated Complaint: PATIENT WAS AT [employer]ANCE ON FRIDAY AND JAMMED RIGHT MIDDLE FINGER. STATES IT WAS NOT TOO PAINFUL THEN. TODAY IT IS SWOLLEN, BRUISED AND MORE PAINFUL HPI/ROS CHIEF COMPLAINT: Right 3rd finger finger injury HISTORY OF PRESENT ILLNESS: 33-year-old female presents to emergency Department after hurting her middle finger on her dominant right hand. Patient states she was dancing and fell and jammed her finger thought it was just jammed but she is unable to bend at the PIP of the DIP joint. Patient has no additional injuries this time. Pain with flexion and extension any movement palpation REVIEW OF SYSTEMS: Respiratory: No cough, no dyspnea. Cardiovascular: No chest pain, no palpitations. Gastrointestinal: No vomiting, no abdominal pain. Musculoskeletal: Right 3rd finger pain Remainder of the 14 system rev: Yes Allergies: Coded Allergies: lorazepam (Verified Allergy, Severe, ANAPHYLAXIS, 08/13/18) Uncoded Allergies: NUTS (Allergy, Unknown, 12/22/17) Home Meds Reported Medications Albuterol Sulfate 90 Mcg/Act (PROAIR HFA 90 MCG/ACT) 8.5 Gm Hfa.aer.ad, 2 PUFF IH Q4-6H PRN for SHORTNESS OF BREATH, INHALER 06/21/18 Fluticasone/Salmeterol (ADVAIR 100-50 DISKUS) 1 Each Disk.w.dev, 1 EACH IH 01/23/18 Pantoprazole Sodium (PANTOPRAZOLE SODIUM) 40 Mg Tablet.dr, 40 MG PO QDAY, TAB.SR 01/23/18 Montelukast Sodium (SINGULAIR) 10 Mg Tablet, 1 TAB PO QDAY, TAB 01/23/18 Sertraline Hcl (ZOLOFT) 100 Mg Tablet, 1 TAB PO QDAY, TAB 12/22/17 Reviewed Nurses Notes: Yes Old Medical Records Reviewed: Yes Hx Smoking: No Smoking Status: Former Smoker Exposure to Second Hand Smoke?: Yes Hx Substance Use Disorder: No Hx Alcohol Use: No Constitutional Vital Sign - Last 24 Hours 03/14/19 17:08 Temp 98.2 Pulse 75 Resp 20 B/P (MAP) 107/74 Pulse Ox 96 O2 Delivery Room Air Physical Exam General appearance: Alert no distress. Respiratory: Chest is non tender, lungs are clear to auscultation. Cardiac: Regular rate and rhythm [ ] Right hand examination patient is an obvious deformity to the PIP and the DIP joint of the 3rd finger of the right hand unable to flex or fully extend bruising and ecchymotic around the joint itself no pain to the MCP joint no pain to the wrist otherwise normal exam DIFFERENTIAL DIAGNOSIS: After history and physical exam differential diagnosis was considered for finger contusion versus fracture Medical Decision Making ED Course/Re-evaluation ED Course ED course a 3-year-old female who comes with a pain to the middle finger of her dominant right hand x-rays do confirm a fracture of the 2nd phalanges of the right 3rd finger nondisplaced angled will be placed in a finger splint and follow-up with orthopedics Decision to Disposition Date: Mar 14, 2019 Decision to Disposition Time: 17:34 Depart Departure Latest Vital Signs Vital Signs Date Time Temp Pulse Resp B/P (MAP) Pulse Ox O2 Delivery O2 Flow Rate FiO2 03/14/19 17:08 98.2 75 20 107/74 96 Room Air Impression: Primary Impression: Finger fracture Condition: Improved Disposition: HOME OR SELF-CARE Referrals: SALLIE ORLANDO PA-C (PCP) 2 Weeks Patient Instructions: Finger Fracture (DC) KAMRAN VERDE MD Mar 14, 2019 17:12
--- NOTE | 2019-03-14 17:55 | RADIOLOGY IMAGING REPORT ---
FACILITY: [facility] PATIENT NAME: Mathieu Joseph : 1985 MR: [id number] V: [id number] EXAM DATE: ORDERING PHYSICIAN: KMARAN VERDE TECHNOLOGIST: Location: [facility] - [place] Patient: Mathieu Joseph : 1985 Visit/Account:[id number] Date of Sevice: 03/14/2019 EXAMINATION: Right hand 3 views HISTORY: Injury. COMPARISON: None. FINDINGS: There is a mildly displaced oblique fracture along the mid shaft of the middle phalanx of the right t hird finger. The distal fracture fragment is displaced in a volar direction by up to 2 mm on the late ral view. Normal alignment at the PIP and DIP joints. Surrounding soft tissue swelling. No other acute osseous findings in the right hand. Joint spaces are preserved. Normal mineralization. IMPRESSION: Mildly displaced fracture of the middle phalanx of the right third finger. Report Dictated By: George Gordillo MD at 03/14/2019 5:44 PM Report E-Signed By: George Gordillo MD at 03/14/2019 5:47 PM WSN:[id number]
== END 2019-03-14 17:44 | disposition home or self-care (01) ==
LOC: ER 17:24
DX: S62.622A Displaced fracture of middle phalanx of right middle finger, initial encounter for closed fracture (principal)
CPT/HCPCS: 99283